=== PATIENT | female | born 1955 | race Caucasian/White ===

== ENCOUNTER 2021-08-10 08:18 | Day surgery (SDC) | payer OTHER ==
[~2021-08-10 08:18] MED LIST: Acetaminophen 325 MG Tab PO SCH; Lactated Ringers 1,000 ML IV SCH; Lidocaine 1%/Sod Bicarbonate in NS 8.4% 1 ML Syringe IDERM PRN; Pregabalin 25 MG Cap PO SCH; Sodium Chloride 0.9% 10 ML Syringe FLUSH PRN; Sodium Chloride 0.9% 10 ML Syringe FLUSH SCH; oxyCODONE ER 10 MG TAB.ER PO SCH
[2021-08-10] MEDS ORDERED: Ropivacaine 0.5% 5 MG/ML 30 ML SDV ONE (09:35)
[2021-08-10] MEDS ORDERED: EPINEPHrine 1 MG/ML SDV ONE (09:35)
[2021-08-10] MEDS ORDERED: Rocuronium 50 MG/5 ML Vial ONE (09:38)
[2021-08-10] MEDS ORDERED: Ondansetron 4 MG/2 ML SDV ONE (09:38)
[2021-08-10] MEDS ORDERED: Lidocaine 1% 4 ML ONE (09:38)
[2021-08-10] MEDS ORDERED: fentaNYL 250 MCG/5 ML SDV ONE (09:39)
[2021-08-10] MEDS ORDERED: Propofol 200 MG/20 ML SDV ONE ×2 (09:39→11:15)
[2021-08-10] MEDS ORDERED: ceFAZolin 1 GM Vial ONE (09:39)
[2021-08-10] MEDS ORDERED: Midazolam 1 MG/ML 2 ML SDV ONE (09:39)
[2021-08-10] MEDS ORDERED: Lidocaine 1% 2 ML ONE (09:44)
[2021-08-10] MEDS ORDERED: Lidocaine 1% 5 ML VIAL ONE (11:15)
[2021-08-10] MEDS ORDERED: Lactated Ringers 1,000 ML ONE (11:50)
[2021-08-10] MEDS ORDERED: ePHEDrine 50 MG/ML SDV ONE (12:08)
[2021-08-10] MEDS: Vancomycin 1 GM SDV ONE ×2 (12:15→12:47)
[2021-08-10] MEDS ORDERED: HYDROmorphone 0.5 MG/0.5 ML Syringe IVPUSH PRN (12:54)
[2021-08-10] MEDS ORDERED: Ondansetron 4 MG/2 ML SDV IVPUSH PRN (12:54)
[2021-08-10] MEDS ORDERED: fentaNYL 100 MCG/2 ML SDV IVPUSH PRN (12:54)
== END 2021-08-10 16:19 | disposition home or self-care (01) ==
LOC: JD.SDS 08:18
PROVIDERS: ATTEND Orthopaedic Surgery
DX: M19.012 Primary osteoarthritis, left shoulder (principal); M75.122 Complete rotator cuff tear or rupture of left shoulder, not specified as traumatic; G89.29 Other chronic pain; E78.00 Pure hypercholesterolemia, unspecified; I10 Essential (primary) hypertension; E03.9 Hypothyroidism, unspecified; H54.7 Unspecified visual loss; K21.9 Gastro-esophageal reflux disease without esophagitis; F17.210 Nicotine dependence, cigarettes, uncomplicated; Z79.890 Hormone replacement therapy; Z79.899 Other long term (current) drug therapy
CPT/HCPCS: 20680; 23472; 73020; 76000; 97110; 97161; A9270; C1713; C1769; C1776; J0171; J0690; J2250; J2370; J2405; J2704; J2710; J2795; J3010; J3370; J7120; 01638; 64415; 76942

== ENCOUNTER 2021-10-29 15:15 | Day surgery (SDC) | payer OTHER ==
[2021-10-29] MEDS: Polymyxin B/Trimethoprim 10 ML Bottle EYERT SCH ×3 (15:10→17:11)
[~2021-10-29 15:15] MED LIST changes: -Acetaminophen 325 MG Tab PO SCH; +Cefuroxime 10 MG/ML SYRINGE EYERT SCH; -Lactated Ringers 1,000 ML IV SCH; +Lidocaine 1% PF 2 ML SDV INJECT SCH; -Lidocaine 1%/Sod Bicarbonate in NS 8.4% 1 ML Syringe IDERM PRN; +Pilocarpine 4% Ophth Soln 15 ML Bot EYERT SCH; -Pregabalin 25 MG Cap PO SCH; -Sodium Chloride 0.9% 10 ML Syringe FLUSH PRN; -Sodium Chloride 0.9% 10 ML Syringe FLUSH SCH; -oxyCODONE ER 10 MG TAB.ER PO SCH
[2021-10-29] MEDS: Brimonidine 0.2% Ophth Soln 5 ML Bottle EYERT SCH ×3 (15:15→17:11)
[2021-10-29] MEDS: Phenylephrine 2.5% Ophth Soln 2 ML Bot EYERT SCH ×5 (15:20→16:48)
[2021-10-29] MEDS: Tropicamide 1% Ophth Soln 15 ML Bottle EYERT SCH ×4 (15:26→16:15)
[2021-10-29] MEDS: Tetracaine HCl/PF 0.5% 4 ML Bottle EYEBOTH SCH ×3 (16:27→17:01)
== END 2021-10-29 17:26 | disposition home or self-care (01) ==
LOC: JD.SDS 15:15
PROVIDERS: ATTEND Ophthalmology
DX: H25.813 Combined forms of age-related cataract, bilateral (principal); H53.031 Strabismic amblyopia, right eye; H16.223 Keratoconjunctivitis sicca, not specified as Sjogren's, bilateral; H16.103 Unspecified superficial keratitis, bilateral; H35.30 Unspecified macular degeneration; I10 Essential (primary) hypertension; E03.9 Hypothyroidism, unspecified; K21.9 Gastro-esophageal reflux disease without esophagitis; J30.9 Allergic rhinitis, unspecified; I87.2 Venous insufficiency (chronic) (peripheral); Z90.710 Acquired absence of both cervix and uterus; Z98.890 Other specified postprocedural states; Z79.890 Hormone replacement therapy; Z79.899 Other long term (current) drug therapy; Z79.52 Long term (current) use of systemic steroids; Z79.84 Long term (current) use of oral hypoglycemic drugs; Z79.2 Long term (current) use of antibiotics
CPT/HCPCS: 66984; J0697; C1780

== ENCOUNTER 2021-11-26 09:31 | Day surgery (SDC) | payer OTHER ==
[2021-11-26] MEDS: Polymyxin B/Trimethoprim 10 ML Bottle EYELF SCH ×3 (09:28→11:10)
[~2021-11-26 09:31] MED LIST changes: +Cefuroxime 10 MG/ML SYRINGE EYELF SCH; -Cefuroxime 10 MG/ML SYRINGE EYERT SCH; +Pilocarpine 4% Ophth Soln 15 ML Bot EYELF SCH; -Pilocarpine 4% Ophth Soln 15 ML Bot EYERT SCH
[2021-11-26] MEDS: Brimonidine 0.2% Ophth Soln 5 ML Bottle EYELF SCH ×4 (09:33→11:29)
[2021-11-26] MEDS: Phenylephrine 2.5% Ophth Soln 2 ML Bot EYELF SCH ×5 (09:37→10:54)
[2021-11-26] MEDS: Tropicamide 1% Ophth Soln 15 ML Bottle EYELF SCH ×4 (09:41→10:34)
[2021-11-26] MEDS: Tetracaine HCl/PF 0.5% 4 ML Bottle EYEBOTH SCH ×4 (10:41→11:28)
== END 2021-11-26 11:18 | disposition home or self-care (01) ==
LOC: JD.SDS 09:31
PROVIDERS: ATTEND Ophthalmology
DX: H25.812 Combined forms of age-related cataract, left eye (principal); H18.231 Secondary corneal edema, right eye; H50.011 Monocular esotropia, right eye; H16.103 Unspecified superficial keratitis, bilateral; H16.223 Keratoconjunctivitis sicca, not specified as Sjogren's, bilateral; I10 Essential (primary) hypertension; E78.00 Pure hypercholesterolemia, unspecified; M19.90 Unspecified osteoarthritis, unspecified site; K21.9 Gastro-esophageal reflux disease without esophagitis; E03.9 Hypothyroidism, unspecified; Z98.890 Other specified postprocedural states; Z96.1 Presence of intraocular lens; Z90.710 Acquired absence of both cervix and uterus; Z79.899 Other long term (current) drug therapy; Z79.890 Hormone replacement therapy
CPT/HCPCS: 66984; J0697; C1780

== ENCOUNTER 2023-05-05 17:26 | Emergency (ER) | payer MEDICARE, OTHER | END 2023-05-05 17:41 | disposition left against medical advice (07) | LOC: JD.ED 17:26 | DX: Z53.21 Procedure and treatment not carried out due to patient leaving prior to being seen by health care provider (principal) ==

== ENCOUNTER 2023-05-21 19:17 | Emergency (ER) | payer MEDICARE, OTHER ==
[2023-05-21] MEDS ORDERED: Sodium Chloride 0.9% 10 ML Syringe FLUSH PRN (19:46)
[2023-05-21] MEDS ORDERED: Iopamidol 612 MG/ML 100 ML Bottle IVPUSH ONE (19:49)
[2023-05-21] MEDS: LORazepam 2 MG/ML SDV IVPUSH ONE (20:07)
[2023-05-21] MEDS: Sodium Chloride 0.9% 10 ML Syringe FLUSH ONE (20:08)
== END 2023-05-21 20:25 | disposition home or self-care (01) ==
LOC: JD.ED 19:17
DX: K40.90 Unilateral inguinal hernia, without obstruction or gangrene, not specified as recurrent (principal); I10 Essential (primary) hypertension; E03.9 Hypothyroidism, unspecified; Z88.5 Allergy status to narcotic agent; Z88.6 Allergy status to analgesic agent; Z79.899 Other long term (current) drug therapy; Z90.710 Acquired absence of both cervix and uterus
CPT/HCPCS: 99283; J3490

== ENCOUNTER 2024-02-09 12:21 | Emergency (ER) | payer OTHER, MEDICARE ==
[2024-02-09] MEDS ORDERED: Sodium Chloride 0.9% 10 ML Syringe FLUSH PRN (12:36)
[2024-02-09 13:02] LABS: BASOPHILS PERCENT AUTO 0.3 % (0.0-1.0); EOSINOPHILS PERCENT AUTO 0.7 % (0.0-6.0); HEMATOCRIT 42.3 % (37.0-47.0); IMMATURE GRAN ABSOLUTE AUTO 0.02 K/mm3 (0.00-0.05); IMMATURE GRAN PERCENT AUTO 0.3 % (0.0-0.4); LYMPHOCYTES ABSOLUTE AUTO 1.5 K/mm3 (1.0-4.8); LYMPHOCYTES PERCENT AUTO 25.4 % (24.0-44.0); MEAN CORPUSCULAR HEMOGLOBIN 29.4 pg (28.0-32.0); MEAN CORPUSCULAR HGB CONC 33.1 g/dl (32.0-36.0); MEAN CORPUSCULAR VOLUME 88.9 fl (83.0-99.0); MEAN PLATELET VOLUME 8.4 fl (9.4-12.3); MONOCYTES ABSOLUTE AUTO 0.4 K/mm3 (0.0-0.8); MONOCYTES PERCENT AUTO 7.4 % (0.0-8.0); NEUTROPHILS ABSOLUTE AUTO 3.8 K/mm3 (1.8-7.7); NEUTROPHILS PERCENT AUTO 65.9 % (41.0-71.0); PLATELET COUNT,PLT 358 K/mm3 (150-400); RED BLOOD CELL COUNT 4.76 M/mm3 (4.10-5.30); WHITE BLOOD CELL COUNT,WBC 5.83 K/mm3 (3.9-11.3)
[2024-02-09 13:29] LABS: A/G RATIO 1.1 (1-2); ALBUMIN 3.8 g/dl (3.4-5.0); ANION GAP 11.1 (5-15); BILIRUBIN TOTAL 0.4 mg/dL (0.2-1.0); BUN/CREATININE RATIO 24.3 (14-18); CALCIUM 9.6 mg/dL (8.5-10.1); CREATININE 0.7 mg/dL (0.55-1.02); EST CRCL DRUG DOSING (CG) 57.24 mL/min; POTASSIUM,K 4.1 mEq/L (3.5-5.1); PROTEIN TOTAL,TP 7.3 g/dl (6.4-8.2)
== END 2024-02-09 14:50 | disposition home or self-care (01) ==
LOC: JD.ED 12:21
DX: S16.1XXA Strain of muscle, fascia and tendon at neck level, initial encounter (principal); S09.90XA Unspecified injury of head, initial encounter; V89.2XXA Person injured in unspecified motor-vehicle accident, traffic, initial encounter; I10 Essential (primary) hypertension; E03.9 Hypothyroidism, unspecified; Z79.899 Other long term (current) drug therapy; Z88.6 Allergy status to analgesic agent; Z88.5 Allergy status to narcotic agent
CPT/HCPCS: 36415; 70450; 70450-26; 71045; 71045-26; 72125; 72125-26; 80053; 83690; 85025; 99284